=== PATIENT | male | born 1985 | race Caucasian/White ===

== ENCOUNTER → 2025-02-23 | Outpatient (CLI) | payer BC ==
--- NOTE | 2025-02-23 11:45 | US ---
EXAMINATION TYPE: US thyroid st tissue head/neck DATE OF EXAM: 02/23/2025 COMPARISON: NONE CLINICAL INDICATION: Male, 39 years old with history of R22.1 NECK LUMP; Pt has been feeling "lump" for about a year now, pt states the lump has gotten slightly bigger as des e went on and more noticeable, pt states no complaint of pain, redness or tenderness in AOC TECHNIQUE: Left Neck scanned, Pt AOC/ Area of Palp FINDINGS: ?Probable lymph nodes seen 1. 0.8x0.5x0.4cm 2. 1.1x0.5x0.5cm No suspicious adenopathy or concerning solid or cystic mass or fluid collection are seen. IMPRESSION: Small subcentimeter benign-appearing lymph nodes in the left neck are present. [facility], , 02/23/2025 11:42 AM
== END | disposition home or self-care (01) ==
LOC: RADUSWWP 11:07
PROVIDERS: ATTEND Family Medicine
DX: R59.1 Generalized enlarged lymph nodes (principal)
CPT/HCPCS: 76536